=== PATIENT | female | born 1990 | race Caucasian/White ===

== ENCOUNTER 2024-10-13 22:04 | Emergency (ER) | payer OTHER ==
[~2024-10-13] VITALS: Ht 154.9 cm; Wt 59.0 kg
[2024-10-13 22:34] LABS: BASOPHILS ABSOLUTE AUTO 0.05 K/mm3 (0.00-0.23); BASOPHILS PERCENT AUTO 1 % (0-2); EOSINOPHILS ABSOLUTE AUTO 0.15 K/mm3 (0.00-0.68); EOSINOPHILS PERCENT AUTO 2 % (0-6); Hemoglobin 14.2 g/dL (11.5-16.0); IMMATURE GRAN ABSOLUTE AUTO 0.01 K/mm3 (0.00-0.10); IMMATURE GRAN PERCENT AUTO 0 % (0-1); LYMPHOCYTES ABSOLUTE AUTO 2.96 K/mm3 (0.84-5.20); LYMPHOCYTES PERCENT AUTO 36 % (21-46); MONOCYTES ABSOLUTE AUTO 0.62 K/mm3 (0.16-1.47); MONOCYTES PERCENT AUTO 8 % (4-13); Mean Corpuscular HGB 29.8 pg (26.0-34.0); Mean Corpuscular HGB Conc 33.8 g/dL (31.5-36.5); Mean Corpuscular Volume 88 fL (80-100); Mean Platelet Volume 10.1 fL (9.1-12.4); NEUTROPHILS ABSOLUTE AUTO 4.36 K/mm3 (1.96-9.15); NEUTROPHILS PERCENT AUTO 54 % (41-73); Platelet Count 334 K/mm3 (150-400); RDW Coefficient Variation 11.9 % (11.7-14.2); RDW Standard Deviation 37.9 fL (35.1-46.3); Red Blood Cell Count 4.76 M/mm3 (3.80-5.20); White Blood Cell Count 8.15 K/mm3 (4.00-11.30)
[2024-10-13 23:01] LABS: Albumin, Blood 3.9 g/dL (3.4-5.0); Albumin/Globulin Ratio 1.1 (0.8-1.8); Bilirubin, Total 0.4 mg/dL (0.1-1.0); Bun/Creatinine Ratio 10.6 (12.0-20.0); Calcium, Blood 9.5 mg/dL (8.5-10.1); Creatinine, Blood 0.76 mg/dL (0.40-1.00); Globulin, Blood 3.5 g/dL (2.2-4.0); Potassium, Blood 3.6 mmol/L (3.5-5.5); Total Protein, Blood 7.4 g/dL (6.4-8.2)
[2024-10-13] MEDS ORDERED: Ketorolac Tromethamine 30mg Vial IV ONE (23:15)
[2024-10-13 23:20] LABS: Source, Urine Clean Catch
[2024-10-13 23:27] LABS: Appearance, Urine Hazy (Clear); Bilirubin, Urine Neg (Neg); Blood, Urine Neg (Neg); Color, Urine Yellow (P-Yellow); Glucose Qualitative, Urine Neg (Neg); Ketones, Urine 2+ (Neg); Leukocyte Esterase, Urine 2+ (Neg); Nitrite, Urine Neg (Neg); Protein, Urine Neg (Neg); Urobilinogen, Urine NORM (Normal)
[2024-10-13 23:36] LABS: Bacteria Many /hpf; Red Blood Cells, Urine 0-2 /hpf (0-2); Squamous Epithelial Cells Few /hpf (Few); Transitional Epithelial Cells Few /hpf (0-Rare)
[2024-10-14] MEDS ORDERED: CEFP200 PO (00:52)
[2024-10-14] MEDS ORDERED: CefTRIAXone Sodium 1,000 MG in NS 100 ML IV ONE ×2 (01:10→23:55)
== END 2024-10-14 01:24 | disposition home or self-care (01) ==
LOC: ER 22:04
PROVIDERS: Student in an Organized Health Care Education/Training Program
DX: N39.0 Urinary tract infection, site not specified (principal); Z88.0 Allergy status to penicillin
CPT/HCPCS: 74177; 80053; 81001; 83690; 84703; 85025; 87077; 87086; 87186; 96374-59; 96375; 99284-25; J0696; J1885; Q9967